=== PATIENT | male | born 1970 | race Two or more races ===

== ENCOUNTER 2023-11-11 20:55 | Emergency (ER) | payer OTHER ==
[~2023-11-11] VITALS: Ht 182.9 cm; Wt 68.5 kg
[~2023-11-11 20:55] MED LIST: HYDACE5 PO; Keflex500 MG PO; OMEP20ER PO; SUCR1 PO; TRAM50 PO
[2023-11-11 21:13] VITALS: BP 139/96
[2023-11-11] MEDS ORDERED: Ibuprofen 400 MG Tab PO ONE (22:20)
== END 2023-11-11 22:18 | disposition home or self-care (01) ==
LOC: ER 20:55
DX: T25.421A Corrosion of unspecified degree of right foot, initial encounter (principal)
CPT/HCPCS: 99283